=== PATIENT | male | born 1950 | race Caucasian/White ===

== ENCOUNTER → 2017-02-12 | Outpatient (CLI) | payer OTHER, BC ==
[2017-02-12 09:54] LABS: HEMOGLOBIN A1C 8.58 % (4.2-6.0)
[2017-02-12 09:59] LABS: BLOOD UREA NITROGEN 19 mg/dL (7-22); BUN/CREATININE RATIO 15.83 (6-20); CALCIUM 9.2 mg/dL (8.7-10.7); CHOL/HDL RATIO 3.47 RATIO (0-4.0); EST GLOMERULAR FILTRATION > 60 (>60 ml/min/1.73m(2)); HDL CHOLESTEROL 48 mg/dL (40-150); SERUM ALBUMIN 4.3 g/dL (3.5-4.8); SERUM CHOLESTEROL 167 mg/dL (120-200)
[2017-02-12 10:21] LABS: CREATININE, URINE 133.3 MG/DL (15-500)
== END ==
LOC: LAB 09:31
PROVIDERS: ATTEND Internal Medicine
DX: E11.9 Type 2 diabetes mellitus without complications (principal); Z79.4 Long term (current) use of insulin; E78.5 Hyperlipidemia, unspecified; I10 Essential (primary) hypertension
CPT/HCPCS: 36415; 80053; 80061; 82043; 82550; 83036

== ENCOUNTER → 2017-02-16 | Outpatient (CLI) | payer OTHER, BC | LOC: MMPC 11:11 | PROVIDERS: ATTEND Internal Medicine | DX: E11.9 Type 2 diabetes mellitus without complications (principal); M10.9 Gout, unspecified; Z95.1 Presence of aortocoronary bypass graft | CPT/HCPCS: 99214; G0463 ==

== ENCOUNTER 2017-04-30 05:20 | Emergency (ER) | payer OTHER, BC ==
[2017-04-30] MEDS ORDERED: Sodium Chloride 0.9% 1,000 ML PRIMARY IV ONE (05:30)
[2017-04-30] MEDS ORDERED: NORMAL SALINE 10 ML SYRINGE FLUSH IVP PRN (05:30)
[2017-04-30] MEDS ORDERED: MORPHINE SULFATE 4 MG/1 ML IVP ONE ×2 (05:32→06:12)
[2017-04-30] MEDS: ONDANSETRON 4 MG/2 ML VIAL IVP ONE ×2 (05:35→06:23)
--- NOTE | 2017-04-30 05:35 | EKG ---
[address] [address] Measurements Intervals [place] Rate: 84 P: 65 MS: 132 QRS: 74 QRSD: 117 T: 62 QT: 323 QTc: 364 Interpretive Statements SINUS RHYTHM WITH FREQUENT VENTRICULAR PREMATURE COMPLEXES IN A BIGEMINAL PATTERN LEFT ATRIAL ENLARGEMENT LOW QRS VOLTAGE IN EXTREMITY LEADS POSSIBLE ANTERIOR MYOCARDIAL INFARCTION OF INDETERMINATE AGE No previous ECG available for comparison Electronically Signed On 04-30-17 09:47:49 MDT by Herman Bernal [email or web address]
[2017-04-30] MEDS ORDERED: MORPHINE SULFATE 4 MG/1 ML ONE (05:38)
[2017-04-30] MEDS ORDERED: ONDANSETRON 4 MG/2 ML VIAL ONE (05:38)
[2017-04-30] MEDS ORDERED: Pantoprazole Inj 40 MG in Normal Saline Flush 10 ML IVP ONE (05:53)
--- NOTE | 2017-04-30 05:59 | PDOC ---
Chest Pain HPI - General Chief Complaint: Chest Pain Date Seen by Provider: 04/30/17 Time Seen by Provider: 05:25 Source: Patient, Spouse Exam Limitations: POSITIVE: No limitations Treatment Prior to Arrival: REPORTS: Nitroglycerin ([place] home with no relief) , Aspirin (He did take a full strength aspirin in route) Nurse's Notes Reviewed & Considered: Yes - History of Present Illness Initial Comments: The patient is a 66-year-old male who presents to the emergency department with sudden onset of epigastric/lower chest pain at approximately 3:00 this morning. He states that he was lying in bed when he had onset of pain. The pain initially radiated through to his back as well. He had associated nausea at home. He does have a history of coronary artery disease and underwent bypass surgery 3 years ago. He has not had any issues with his heart since his bypass surgery. He states that he tried taking 2 sublingual nitroglycerin at home without any relief. He also took a full strength aspirin on the way here. [place] of town. On arrival the patient reports that his pain level is 10 out of 10. He does have associated nausea as well. His pain is not intensified with taking a deep breath. He denies any associated palpitation, pain or swelling in his legs. His reports that he has been under a lot of stress recently. His dog is apparently ill and dying. He does have a history of acid reflux as well and reports he has been having some indigestion recently. He takes Zantac every day and Prilosec as needed. He did take a dose of Prilosec a couple of days ago. He has not had any prior abdominal surgeries. - Patient Home Medications Home Medications: Home Medications Aspirin 1 tab ORAL HS tab 05/22/11 Calcium Carbonate 1 tab PO DAILY PRN tab 01/17/14 Lancets [Freestyle Lancets] 1 each MC BID #180 each 06/02/14 Blood Sugar Diagnostic [Blood Glucose Test] 1 each MC BID #150 strip 06/08/14 Carvedilol 6.25 mg PO BID #60 tab 01/02/16 Colchicine [Colcrys] 1 tab PO TID PRN #30 tab 01/02/16 Losartan Potassium 1 tab PO QD #30 tab 01/02/16 Nitroglycerin 1 tab SL chest pain PRN #50 tab 01/02/16 Omeprazole Magnesium [Prilosec Otc] 1 tab PO QHS #30 tab 01/02/16 Probenecid 0.5 tab PO QD #30 tab 01/02/16 Ranitidine HCl 1 cap PO QD #30 cap 01/02/16 Chlorthalidone 1 tab PO QAM #30 tab 07/14/16 - Patient Allergies Allergies/Adverse Reactions: Allergies Allergy/AdvReac Type Severity Reaction Status Date / Time Penicillins Allergy HIVES Verified 04/30/17 05:50 Past Medical History Past Medical History Reviewed: Other (please comment) (Past medical history reviewed in the patient's chart. He does not have any tobacco use, states that he quit drinking 20 years ago, he does have a history of coronary artery disease , hypertension and diabetes. He also had a recent gout flare.) ROS - Limitations ROS Limitations: No Limitations Constitution: DENIES: Chills, Fever Cardiovascular: REPORTS: Chest Pain (Lower chest/epigastric pain), Blood Pressure Problem (His blood pressure was high at home prior to arrival, normally it is fairly normal). DENIES: Heart Palpitations, Edema Respiratory: DENIES: Cough Non Productive, Cough Productive, Hurts To Breathe, Shortness Of Breath Neurological: REPORTS: Denies Neuro Symptoms Gastrointestinal: REPORTS: Abdominal Pain (Epigastric pain), Nausea, Vomitting ( After arrival the patient did have an episode of dry heaves and vomiting), Other (Last bowel movement was at approximately 3:30 this morning and was normal by his report). DENIES: Diarrhea, Black Stools, Bloody Stools, Constipation Musculoskeletal: REPORTS: Denies MS Symptoms Genitourinary: REPORTS: Denies Symptoms Eyes: REPORTS: Denies Symptoms ENT: REPORTS: Denies Symptoms Skin: DENIES: Rash Chest Pain PE - General Appearance General Appearance: REPORTS: Alert, Cooperative, Other (He does appear to be in pain) - HEENT HEENT: POSITIVE: Head Inspection Nml, Eyes Inspection Nml, Ears Inspection Nml, Pharynx Inspect. Nml - Neck Neck: REPORTS: Normal Inspection. DENIES: JVD Present, Lymphadenopathy - Respiratory Respiratory: REPORTS: No Respiratory Distress, Breath Sounds Normal, Chest Non- Tender - Cardiovascular Cardiovascular: REPORTS: Regular Rate and Rhythm, Heart Sounds Normal - Abdomen Additional Abdominal Details: His abdomen does appear slightly distended especially in his upper abdomen, he does have tenderness in the epigastric region without guarding or rebound tenderness, no palpable mass, bowel sounds are present and somewhat hyperactive - Skin Skin: REPORTS: Intact, No Rash - Extremities Extremity: Normal ROM: (All Extremities), Normal Inspection: (All Extremities) - Neurological / Psychological Neurological: POSITIVE: Oriented X3, Motor Normal, Sensation Normal Chest Pain Progress - Results Reviewed by me Xrays/CTs/US Reviewed by me: Yes Discussed with Radiologist: Yes Radiology Findings: Chest x-ray shows cardiomegaly which is new from previous x- rays that were done prior to his bypass surgery. CT scan of his chest for PE protocol was negative for PE, does show cardiomegaly with no other acute findings per radiologist. CT scan of the abdomen and pelvis reveals gallstones with no evidence of gallbladder wall thickening or acute cholecystitis, no other acute intra-abdominal findings per radiologist. Lab Results Reviewed: Yes Lab Results:: Laboratory Results 04/30/17 04/30/17 Range/Units 06:00 08:26 WBC 13.29 H (4.8-10.8) 10^3/uL RBC 5.57 (4.70-6.10) 10^6/uL Hgb 16.5 (14.0-18.0) g/dL Hct 47.2 (42.0-52.0) % MCV 84.7 (80-90) FL MCH 29.6 (27-31) PG MCHC 35.0 (33-37) g/dL RDW Std Deviation 42.1 (39-50) fL RDW Coeff of Joon 13.6 (11.5-14.5) % Plt Count 219 (140-350) 10*3/uL MPV 10.1 (7.4-12.2) FL Immature Gran % (Auto) 0.2 (0-5) % Neut % (Auto) 72.7 (50-80) % Lymph % (Auto) 17.5 (10-50) % [place] % (Auto) 6.8 (5-15) % Eos % (Auto) 2.0 (0-8) % Baso % (Auto) 0.8 (0-1) % Immature Gran # (Auto) 0.02 10*3/UL Neut # (Auto) 9.67 10*3/UL Lymph # (Auto) 2.33 10*3/uL [place] # (Auto) 0.91 H (0.3-0.8) 10*3/UL Eos # (Auto) 0.26 10*3/UL Baso # (Auto) 0.10 10*3/UL WBC Morphology Comment Normal morphology (NORM) Plt Morphology Comment Normal morphology (NORM) RBC Morph Comment Normal morphology (NORM) D-Dimer 0.35 (0.00-0.59) mg/L Sodium 140 (135-145) meq/L Potassium 3.3 L (3.8-5.2) meq/L Chloride 102 (98-112) meq/L Carbon Dioxide 22 L (23-33) meq/L Anion Gap 16 (5-20) BUN 21 (7-22) mg/dL Creatinine 1.3 (0.70-1.50) mg/dL Estimated GFR 55 (>60 ml/min/1.73m(2)) BUN/Creatinine Ratio 16.15 (6-20) Glucose 128 H (78-110) mg/dL Calculated Osmolality 294.0 H (267-292) mOsm/kg Calcium 9.7 (8.7-10.7) mg/dL Magnesium 2.2 (1.6-2.4) mg/dL Total Bilirubin 2.3 H (0.3-1.2) mg/dL AST 38 (21-57) IU/L ALT 47 (21-72) IU/L Alkaline Phosphatase 141 H (38-126) IU/L CK-MB (CK-2) 2.62 (0.00-5.00) NG/ML Troponin I 0.016 0.018 (< 0.040) ng/mL Total Protein 7.7 (6.1-8.0) g/dL Albumin 4.7 (3.5-4.8) g/dL Globulin 3.0 (2.50-4.10) g/dL Albumin/Globulin Ratio 1.50 (1.3-2.0) mg/g Amylase 72 (30-110) U/L Lipase 90 (23-300) IU/L EKG Interpreted/Reviewed By Me:: Yes EKG Interpretation:: POSITIVE: Normal Sinus Rhythm, Normal Rate, Normal QRS, Normal ST/T, Other (He does have a normal sinus rhythm with frequent PVCs, no obvious acute ST segment or T-wave changes) - Patient's Progress MDM / ED Course: The patient had already taken aspirin as well as sublingual nitroglycerin at home without any pain relief. His initial EKG here shows a sinus rhythm with frequent PVCs, no acute ST segment or T-wave changes. The patient's pain is more epigastric in nature. He did receive morphine 4 mg IV as well as Zofran 4 mg IV. He did get some pain relief. He also had an episode of emesis after which his pain seemed to be improved somewhat. He was given Protonix 40 mg IV as well. The patient's pain level on arrival was 10 out of 10 and he appeared quite uncomfortable. The initial dose of morphine and Zofran helped slightly with this pain and resulted in relief down to about an 8 out of 10. He received a repeat dose of morphine. His pain gradually improved to the point where it finally completely resolved. His white blood cell count was mildly elevated. His initial troponin and d-dimer were normal. It appeared that his pain was most likely not cardiac in origin and most likely related to gastritis or ulcer/esophageal spasm. He did undergo a PE protocol which was negative. The CT of his abdomen and pelvis does reveal gallstones with no other acute abnormalities. All these findings were discussed with the patient and his . I did offer admission to the hospital however at that point the patient was feeling considerably better and did not want to be admitted to the hospital. He states that he had a nuclear stress test about a year ago and has been following up with his production graphic designer in [place] regularly. He stated that he would prefer to follow-up with him as an outpatient. I did repeat a troponin which remained negative. At that point it was felt that he was most likely not having an acute coronary event. He was advised to increase his Prilosec to twice a day regularly for now. He will follow-up with his primary care provider to discuss further referral related to his gallstones and any other diagnostic evaluation as indicated. He is advised return to the emergency room if he develops increased pain, worsening or change in symptoms. - Consult Counseled: POSITIVE: Patient, Family, RE: Lab Results, RE: Radiology Results, RE : DX, RE: Need for F/U Patient Care Time - Estimated PCT Patient Care Time (In Minutes): 45 Vital Signs - Recent Vital Signs Vital Signs: Vital Signs (Last 8 hours) Temp Pulse Pulse Resp BP BP Pulse Ox 04/30/17 06:22 73 04/30/17 05:59 60 04/30/17 05:21 96.1 F L 87 22 199/91 171/97 99 - VS Reviewed Vital Signs Reviewed: Yes Discharge Clinical Impression: Epigastric pain, Gallstones Discharge Disposition: Discharged to Home Condition: Stable Patient Instructions Given at Discharge: Gallstones (ED), Epigastric Pain (ED) Additional Instructions: The testing done on your heart here in the emergency department did not reveal any evidence of heart attack on her EKG or in the blood work. The source of your pain is thought to be most likely gastritis or ulcer in her stomach or esophagus. The CAT scan of your chest and abdomen did reveal the presence of gallstones however there was no obvious sign of infection there. Recommend that you increase your Prilosec to twice a day for now. Return to the emergency room if increased pain, any worsening or change in symptoms. Recommend follow-up with Dr. Cantrell to discuss the need for any further testing or referral. I would recommend consideration for surgical consultation secondary to the gallstones as well as likely follow up with your production graphic designer Dr. Lemon. Follow Up With: TETO CANTRELL [Primary Care Provider] -
[2017-04-30 06:08] LABS: BASOPHILS % (AUTO) 0.8 % (0-1); EOSINOPHILS # (AUTO) 0.26 10*3/UL; HEMATOCRIT 47.2 % (42.0-52.0); HEMOGLOBIN 16.5 g/dL (14.0-18.0); LYMPHOCYTES # (AUTO) 2.33 10*3/uL; MEAN CORPUSCULAR HEMOGLOBIN 29.6 PG (27-31); MEAN CORPUSCULAR VOLUME 84.7 FL (80-90); MEAN PLATELET VOLUME 10.1 FL (7.4-12.2); MONOCYTES # (AUTO) 0.91 10*3/UL (0.3-0.8); MONOCYTES % (AUTO) 6.8 % (5-15); NEUTROPHILS # (AUTO) 9.67 10*3/UL; NEUTROPHILS % (AUTO) 72.7 % (50-80); RED BLOOD COUNT 5.57 10^6/uL (4.70-6.10)
[2017-04-30 06:11] LABS: PLATELET MORPHOLOGY COMMENT NORMAL MORPHOLOGY (NORM); RBC MORPHOLOGY COMMENT NORMAL MORPHOLOGY (NORM); WBC MORPHOLOGY COMMENT NORMAL MORPHOLOGY (NORM)
[2017-04-30 06:15] VITALS: RESP 22; TEMP 96.1
[2017-04-30 06:15] LABS: BUN/CREATININE RATIO 16.15 (6-20); CALCIUM 9.7 mg/dL (8.7-10.7); SERUM ALBUMIN 4.7 g/dL (3.5-4.8)
[2017-04-30 06:16] LABS: MAGNESIUM 2.2 mg/dL (1.6-2.4)
--- NOTE | 2017-04-30 06:16 | EKG ---
[address] [address] Measurements Intervals [place] Rate: 73 P: 48 GA: 173 QRS: 50 QRSD: 120 T: 66 QT: 427 QTc: 453 Interpretive Statements SINUS RHYTHM POSSIBLE LEFT ATRIAL ENLARGEMENT POSSIBLE ANTERIOR MYOCARDIAL INFARCTION , OF INDETERMINATE AGE Compared to ECG 04/30/2017 05:28:57 Ventricular premature complex(es) no longer present Myocardial infarct finding still present Electronically Signed On 04-30-17 09:46:45 MDT by Herman Bernal [email or web address]
[2017-04-30 06:27] LABS: CREATINE KINASE MB 2.62 NG/ML (0.00-5.00); TROPONIN I 0.016 ng/mL (< 0.040)
--- NOTE | 2017-04-30 08:05 | DI ---
AP CHEST X-RAY, 04/30/2017 5:31 AM : Clinical History: Chest pain. Previous Exam: 12/26/2013. There is no acute soft tissue or bony abnormality. The patient has undergone CABG. There is cardiomeg nallely with prominence of the left ventricular contour. There is no CHF. No acute infiltrate or effusion is present. Mediastinal structures are normal. There are no pulmonary nodules. Reading: Interval development of cardiomegaly with prominence of the left ventricular contour. This can be see n with severe hypertension or aortic valvular disease or as a result of a myocardial infarction with development of an aneurysm. There is no CHF.
--- NOTE | 2017-04-30 09:19 | DI ---
CT ANGIOGRAM OF THE CHEST, 04/30/2017 6:31 AM : Clinical History: Chest pain. Previous Exam: None at this facility. Scans are performed from the base of the neck to the lower lung bases following IV administration of 65 mL of Isovue 300. Proprietary automated bolus tracking software was not used to verify the timing of the injection. The base of the neck and thoracic inlet are normal. There are no abnormal axillary, supraclavicular, mediastinal, or hilar nodes. Calcified lymph nodes are present in the mabel and the subcarinal space. There is cardiomegaly with left ventricular dilatation. There is thinning of the myocardium along the anterior wall extending to the anteroapical region with blunting of the apex. This is consistent wit h a previous myocardial infarction. The pulmonary arteries are well opacified and the aorta is barely opacified indicating this patient has a low cardiac output. There is pulmonary arterial hypertension without evidence of pulmonary embolism or pulmonary embolism with infarction. The lungs are clear an d there are no pulmonary nodules or masses. Punctate calcifications are present in the spleen. Multip le small gallstones less than 5 mm in diameter are present without evidence of acute cholecystitis. READIN. There is pulmonary arterial hypertension without evidence of pulmonary embolism or pulmonary embo lism with infarction. No obvious chronic lung disease is identified. 2. Status post CABG with evidence of a myocardial infarction involving the distribution of the LAD t o the apex and with left ventricular dilatation and apparent low cardiac output. 3. Calcifications in the mediastinum and mabel and spleen consistent with previous exposure to either TB or histoplasmosis. 4. Cholelithiasis without evidence of acute cholecystitis.
--- NOTE | 2017-04-30 09:22 | DI ---
CT ABDOMEN SCAN WITH IV CONTRAST, 04/30/2017 6:32 AM : Clinical History: Epigastric pain with elevated white count. Previous Exam: None at this facility. Scans are performed from the lower lung bases through the liver and kidneys with IV contrast. This is the same bolus of contrast used for the CT angiogram of the chest. The lung bases are clear. The liver is normal. There is cholelithiasis without evidence of acute chol ecystitis. As noted previously, calcifications are present in the mediastinum and both mabel as well a s in the spleen indicating previous exposure to either TB or histoplasmosis. There is mild splenomega ly. Both adrenal glands and the pancreas are normal. Both kidneys are normal in size, shape, position and contour. There is no hydronephrosis or hydroureter. No renal or ureteral calculi are present. Th ere are no abnormal retrocrural or periaortic nodes. No ascites is present. READIN. Mild splenomegaly. Splenic calcifications and hilar and mediastinal calcifications indicate this patient has had previous exposure to either TB or histoplasmosis. 2. The remainder of the examination is normal. CT PELVIS SCAN WITH IV CONTRAST, 04/30/2017 6:32 AM: Clinical History: See above. Previous Exam: None at this facility. Scans are performed from just superior to the umbilicus to the symphysis pubis with IV contrast. This is the same bolus of contrast used for the CT scans of the chest and abdomen. Scans through the lower abdomen and pelvis show no masses or abnormal fluid collections. There is no adenopathy. The appendix is normal. The small bowel, terminal ileum, and ileocecal valve are normal. The colon is also normal. There are no hernias. READING: Normal CT scan of the pelvis.
== END 2017-04-30 09:22 | disposition home or self-care (01) ==
LOC: ER 05:20
DX: K80.80 Other cholelithiasis without obstruction (principal); R10.13 Epigastric pain; R11.0 Nausea; I27.2 Other secondary pulmonary hypertension; E11.9 Type 2 diabetes mellitus without complications; R07.9 Chest pain, unspecified; Z95.1 Presence of aortocoronary bypass graft
CPT/HCPCS: 36415; 71010; 71275; 74177; 80053; 82150; 82553; 83690; 83735; 84484; 85025; 85379; 93005; 93010; 96374; 96375; 96376; 99284; J2270; J2405; J3490

== ENCOUNTER → 2017-05-18 | Outpatient (CLI) | payer OTHER, BC ==
[2017-05-18 07:13] LABS: HEMOGLOBIN A1C 6.81 % (4.2-6.0)
[2017-05-18 07:15] LABS: CREATININE, URINE 201.2 MG/DL (15-500)
[2017-05-18 11:44] LABS: C-REACTIVE PROTEIN 0.8 mg/dL (0.0-0.9)
== END ==
LOC: LAB 06:47
PROVIDERS: ATTEND Internal Medicine
DX: E11.9 Type 2 diabetes mellitus without complications (principal); R10.13 Epigastric pain; M10.9 Gout, unspecified; M25.571 Pain in right ankle and joints of right foot
CPT/HCPCS: 36415; 82043; 83036; 84550; 85652; 86038; 86140; 86200; 99215; G0463

== ENCOUNTER → 2017-05-21 | Outpatient (CLI) | payer OTHER, BC ==
--- NOTE | 2017-05-21 11:58 | DI ---
US ABDOMEN LIMITED,05/21/2017 9:40 AM: Clinical History: Epigastric pain Previous Exam: None at this facility. Findings: Multiple grayscale and color Doppler sonographic images are obtained through the abdomen demonstratin g a normal-appearing liver. The pancreas is not well seen, but visualized portions are grossly normal . The gallbladder contained some layering stones and sludge. A negative sonographic Diana's sign was o btained. The common bile duct measured 5 mm. There is no pericholecystic fluid. Visualized portions o f the aorta are unremarkable. The right kidney demonstrates some mild cortical thinning and measures 10.8 cm in long axis. There is no hydronephrosis nor nephrolithiasis. Impression: 1. Multiple layering stones within the gallbladder with sludge. This fills the majority the gallbladd er. Consider surgical consultation.
== END ==
LOC: US 09:36
PROVIDERS: ATTEND Internal Medicine
DX: R10.13 Epigastric pain (principal); K80.20 Calculus of gallbladder without cholecystitis without obstruction
CPT/HCPCS: 76705